=== PATIENT | female | born 1980 | race Hispanic/Latino ===

== ENCOUNTER 2023-09-16 15:50 | Emergency (ER) | payer BC, MEDICAID ==
[~2023-09-16] VITALS: Ht 152.4 cm; Wt 54.4 kg
[2023-09-16 16:43] VITALS: BP 134/89; PULSE 91; RESP 18
== END 2023-09-16 18:31 | disposition left against medical advice (07) ==
LOC: EDH 15:50
DX: M54.50 Low back pain, unspecified (principal); Z53.21 Procedure and treatment not carried out due to patient leaving prior to being seen by health care provider